=== PATIENT | male | born 1955 | race Caucasian/White ===

== ENCOUNTER 2018-03-04 09:32 | Observation (INO) | payer OTHER ==
[~2018-03-04] VITALS: Ht 172.7 cm; Wt 111.2 kg
[~2018-03-04 09:32] MED LIST: ATORVASTATIN CA40 M1 PO; DOXAZOSIN MESYLA4 M1 PO; LOSARTAN-HCTZ1 EAC2 PO; ORPHENADRINE C100 MG PO; PERCOCET 5-3251 EACH PO; TAMSULOSIN HCL0.4 M1 PO
--- NOTE | 2018-03-04 10:47 | ED GI/GU/ABDOMINAL COMPLAINT ---
History of Present Illness General Chief Complaint: Low Back Pain/Injury Stated Complaint: BACK PAIN Source: patient, family, old records Exam Limitations: no limitations Vital Signs & Intake/Output Vital Signs & Intake/Output Vital Signs Date Time Temp Pulse Resp B/P B/P Pulse O2 O2 Flow FiO2 Mean Ox Delivery Rate 03/04 1342 98.6 70 20 124/82 97 Room Air 03/04 1150 99.2 70 20 136/87 97 Room Air 03/04 0954 99.8 79 20 134/82 96 Room Air Allergies Coded Allergies: NO KNOWN ALLERGIES (06/03/17) Reconcile Medications Atorvastatin Calcium 40 MG TABLET 1 TAB PO DAILY CHOLESTEROL (Reported) Cholecalciferol (Vitamin D3) (Vitamin D) 1,000 UNIT TABLET 1 TAB PO DAILY SUPPLEMENT (Reported) Cyanocobalamin (Vitamin B-12) 1,000 MCG TABLET 1 TAB PO DAILY SUPPLEMENT ( Reported) Doxazosin Mesylate 4 MG TABLET 1 TAB PO DAILY HEART (Reported) Losartan/Hydrochlorothiazide (Losartan-Hctz 100-25 MG Tab) (Unknown Strength) TABLET (Unknown Dose) PO DAILY HEART (Reported) Orphenadrine Citrate 100 MG TABLET.ER 1 TAB PO BIDP PRN muscle tightness/pain Oxycodone HCl/Acetaminophen (Percocet 5-325 MG Tablet) 5 MG-325 MG TABLET 1 TAB PO Q6P PRN pain Tamsulosin HCl 0.4 MG CAP.ER.24H 1 CAP PO DAILY BPH (Reported) Triage Note: RIGHT UPPER QUADRANT PAIN THAT RADIATES INTO RIGHT SIDE OF BACK SINCE 0100. + N/V. PT STATES HE HAS STONES IN HIS GALLBLADDER Triage Nurses Notes Reviewed? yes Onset: 2 days Duration: day(s):, constant, continues in ED Timing: recent history Quality/Severity: fullness, severe Location: right upper quadrant Radiation: back Activities at Onset: rest Prior Abdominal Problems: similar symptoms Past Sexual History: Unobtainable at this time Modifying Factors: Worsens With: movement, palpation. Associated Symptoms: abdominal pain, loss of appetite, nausea/vomiting, nocturia HPI: 2 days prior to admission patient complains of recurrent right flank pain radiating to the right upper quadrant associate with nausea vomiting anorexia. Complains of no stools for the last 5 days. He denies fever chills chest pain cough shortness breath headache dysuria rash bleeding. Past History Travel History Traveled to [place] past 21 day No Medical History Any Pertinent Medical History? see below for history Cardiovascular: hypertension, hyperlipidemia Tetanus Vaccine: Surgical History Surgical History: non-contributory Psychosocial History Who do you live with Spouse What is your primary language Palauan Tobacco Use: Never used ETOH Use: denies use Illicit Drug Use: denies illicit drug use Family History Hx Contributory? No Review of Systems Review of Systems Constitutional: Reports: no symptoms. EENTM: Reports: no symptoms. Respiratory: Reports: no symptoms. Cardiovascular: Reports: no symptoms. GI: Reports: see HPI, abdominal pain, nausea, vomiting. Genitourinary: Reports: no symptoms. Musculoskeletal: Reports: see HPI, back pain. Skin: Reports: no symptoms. Neurological/Psychological: Reports: no symptoms. Hematologic/Endocrine: Reports: no symptoms. Immunologic/Allergic: Reports: no symptoms. All Other Systems: Reviewed and Negative Physical Exam Physical Exam General Appearance: well developed/nourished, alert, awake, anxious, moderate distress, obese Head: atraumatic, normal appearance Eyes: Bilateral: normal appearance, PERRL, EOMI, normal inspection. Ears, Nose, Throat, Mouth: hearing grossly normal, moist mucous membrane Neck: normal inspection, supple, full range of motion, normal alignment Respiratory: normal breath sounds, chest non-tender, no respiratory distress, quiet respiration, lungs clear Cardiovascular: regular rate/rhythm, normal peripheral pulses, norml femoral pulses equa Peripheral Pulses: 4+ carotid (R), 4+ carotid (L) Gastrointestinal: normal bowel sounds, soft, no organomegaly, distention, tenderness Male Genitals: normal genitalia Back: normal inspection, normal range of motion, no vertebral tenderness Extremities: normal range of motion, no ligament instability Neurologic/Psych: no motor/sensory deficits, awake, alert, oriented x 3, normal gait, normal mood/affect, stone splitter II-XII nml as tested Skin: intact, normal color, warm/dry Core Measures ACS in differential dx? No Sepsis Present: No Sepsis Focused Exam Completed? No Progress Differential Diagnosis: biliary colic, cholecystitis, gastritis Plan of Care: Orders Procedure Date/time Status BLOOD CULTURE 03/04 1241 Active URINALYSIS 03/04 1043 Complete LIPASE 03/04 1043 Complete COMPREHENSIVE METABOLIC PANEL 03/04 1043 Complete CBC WITHOUT DIFFERENTIAL 03/04 1043 Complete Laboratory Tests 03/04/18 1218: Urinalysis LIGHT H, Urine Color YEL, Urine Clarity CLEAR, Urine pH 6.0, Ur Specific [place] 1.010, Urine Protein NEG, Urine Ketones NEG, Urine Nitrite NEG, Urine Bilirubin NEG, Urine Urobilinogen 0.2, Ur Leukocyte Esterase TRACE H, Ur Microscopic SEDIMENT EXAMINED, Urine RBC RARE, Urine WBC RARE, Ur Epithelial Cells RARE, Urine Bacteria RARE H, Urine Mucus RARE, Urine Hemoglobin NEG, Urine Glucose NEG 03/04/18 1140: Anion Gap 10, Estimated GFR > 60, BUN/Creatinine Ratio 23.8, Glucose 130 H, Calcium 8.5, Total Bilirubin 1.2, AST 18, ALT 36, Alkaline Phosphatase 41, Total Protein 6.7, Albumin 3.8, Globulin 2.9, Albumin/Globulin Ratio 1.3, Lipase 15 L , CBC w Diff NO MAN DIFF REQ, RBC 4.28 L, MCV 85.9, MCH 29.4, MCHC 34.2, RDW 13.9, MPV 9.1, Gran % 87.9 H, Lymphocytes % 5.4 L, Monocytes % 6.6, Eosinophils % 0, Basophils % 0.1, Absolute Granulocytes 12.4 H, Absolute Lymphocytes 0.8 L, Absolute Monocytes 0.9 H, Absolute Eosinophils 0, Absolute Basophils 0 Microbiology 03/04 1255 BLOOD: Blood Culture - RECD 03/04 1250 BLOOD: Blood Culture - RECD Diagnostic Imaging: Viewed by Me: Ultrasound. Discussed w/RAD: Ultrasound. Radiology Impression: Distended gallbladder with cholelithiasis. Gallbladder wall is thickened with small amount of pericholecystic fluid. There is tenderness to palpation. Findings consistent with acute cholecystitis. Initial ED EKG: none Departure Departure Disposition: STILL A PATIENT Condition: Stable Clinical Impression Primary Impression: Cholecystitis with cholelithiasis Secondary Impressions: Biliary colic Referrals: Saeed BACK,Neto Holloway (PCP/Family) Departure Forms: Customer Survey General Discharge Information OR/GI Note Spoke With: Jenae Andres MD ED Treatment Decision: LOUANN CAMP requires urgent operative management or an emergent procedure that cannot be performed in the Emergency Room setting. Transport To: [facility]
[2018-03-04 11:55] LABS: ABSOLUTE BASOPHIL COUNT 0 /CUMM (0.0-0.2); ABSOLUTE EOSINOPHIL COUNT 0 /CUMM (0.0-0.7); ABSOLUTE GRANULOCYTE CT 12.4 /CUMM (1.4-6.5); ABSOLUTE LYMPH COUNT 0.8 /CUMM (1.2-3.4); ABSOLUTE MONOCYTE COUNT 0.9 /CUMM (0.10-0.60); BASOPHIL % 0.1 % (0.0-2.0); EOSINOPHIL % 0 % (0-5); HEMATOCRIT 36.7 % (42-52); MEAN CORPUSCULAR HGB 29.4 PG (27.0-31.0); MEAN CORPUSCULAR HGB CONC 34.2 G/DL (33.0-37.0); MEAN CORPUSCULAR VOLUME 85.9 FL (80.0-94.0); MEAN PLATELET VOLUME 9.1 FL (7.4-10.4); PLATELET COUNT 208 /CUMM (130-400); RBC DISTRIBUTION WIDTH 13.9 % (11.5-14.5); RED BLOOD CELL CT 4.28 /CUMM (4.70-6.10); WHITE BLOOD CELL COUNT 14.1 /CUMM (4.8-10.8)
[2018-03-04 12:13] LABS: GRANULOCYTE % 87.9 % (42.2-75.2)
[2018-03-04] MEDS ORDERED: VITAMIN D1000 UNIT PO (12:22)
[2018-03-04] MEDS ORDERED: VITAMIN B-121000 MC3 PO (12:22)
--- NOTE | 2018-03-04 12:24 | ULTRASOUND REPORT ---
EXAMINATION: US ABDOMEN LIMITED CLINICAL INFORMATION: Right upper quadrant pain and tenderness. Nausea vomiting.. COMPARISON: CT scan of March 02, 2018 TECHNIQUE: Real-time imaging of the right upper quadrant abdominal viscera. FINDINGS: PANCREAS: Obscured by overlying bowel gas. LIVER: Normal. The liver demonstrates normal size, contour and echogenicity. No focal lesion or intrahepatic biliary duct dilatation. Right lobe cyst seen on CT is not appreciated on this study. GALLBLADDER: The gallbladder is distended to approximately 10 cm in length. Cholelithiasis is present with gravel an echogenic bile. Gallbladder wall is thickened to 5 mm in diameter and there is a small amount of pericholecystic fluid present. There was tenderness to palpation overlying the gallbladder. There appears to be a few cholesterol polyps present. COMMON BILE DUCT: Normal in caliber measuring 0.4 cm in diameter. RIGHT KIDNEY: Normal. No hydronephrosis. No renal calculi or focal parenchymal lesions. The kidney measures 12.5 cm in maximum dimension. IMPRESSION: Distended gallbladder with cholelithiasis. Gallbladder wall is thickened with small amount of pericholecystic fluid. There is tenderness to palpation. Findings consistent with acute cholecystitis.
--- NOTE | 2018-03-04 13:37 | History & Physical Pre-Op ---
General Information and HPI History of Present Illness: This is a 62-year-old male who presents to emergency room for the second time in 3 days. 2 days ago he presented with bilateral back and flank pain with radiation to the abdomen. It was associated with nausea and vomiting. There were some dyspnea with his pain. Workup involved EKG, troponin and CT angiogram of the chest abdomen and pelvis. Findings were revealing only for gallstones without inflammatory changes of the gallbladder. Patient went home and since then has had persistent pain relieved by Percocet which was given to him in the ER. His nausea and vomiting. This morning he was awakened from sleep with severe pain in his right flank and abdomen. There is nausea without vomiting. No fevers but complains of chills and sweats. Allergies/Medications Allergies: Coded Allergies: NO KNOWN ALLERGIES (06/03/17) Home Med list Atorvastatin Calcium 40 MG TABLET 1 TAB PO DAILY CHOLESTEROL (Reported) Cholecalciferol (Vitamin D3) (Vitamin D) 1,000 UNIT TABLET 1 TAB PO DAILY SUPPLEMENT (Reported) Cyanocobalamin (Vitamin B-12) 1,000 MCG TABLET 1 TAB PO DAILY SUPPLEMENT ( Reported) Doxazosin Mesylate 4 MG TABLET 1 TAB PO DAILY HEART (Reported) Losartan/Hydrochlorothiazide (Losartan-Hctz 100-25 MG Tab) (Unknown Strength) TABLET (Unknown Dose) PO DAILY HEART (Reported) Orphenadrine Citrate 100 MG TABLET.ER 1 TAB PO BIDP PRN muscle tightness/pain Oxycodone HCl/Acetaminophen (Percocet 5-325 MG Tablet) 5 MG-325 MG TABLET 1 TAB PO Q6P PRN pain Tamsulosin HCl 0.4 MG CAP.ER.24H 1 CAP PO DAILY BPH (Reported) Past History Medical History Cardiovascular: hypertension, hyperlipidemia Renal: benign prost hyperplasia Musculoskeletal: 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 There is abdominal pain per HPI. No neurologic symptoms. Complete bladder emptying relieved by medications. Chronic arthritic symptoms multiple joints, none are lifestyle limiting. Remainder 12 points negative Exam & Diagnostic Data Last 24 Hrs of Vital Signs/I&O Vital Signs Date Time Temp Pulse Resp B/P B/P Pulse O2 O2 Flow FiO2 Mean Ox Delivery Rate 03/04 1150 99.2 70 20 136/87 97 Room Air 03/04 0954 99.8 79 20 134/82 96 Room Air Intake & Output 03/04 1600 03/04 0800 03/04 0000 Intake Total 1000 Output Total Balance 1000 Intake, IV 1000 Patient 233 lb Weight Weight Reported by Patient Measurement Method Physical Exam: Gen.: He is obese looks his stated age and is in no distress. HEENT: Anicteric PERRL EOMI Chest: Lungs clear bilaterally, heart regular without murmurs Abdomen soft tender right upper quadrant. Negative Castellanos sign no masses no hernias Extremities: No cyanosis clubbing or edema Last 24 Hrs of Labs/Jan: Laboratory Tests 03/04/18 1218: Urinalysis LIGHT H, Urine Color YEL, Urine Clarity CLEAR, Urine pH 6.0, Ur Specific [place] 1.010, Urine Protein NEG, Urine Ketones NEG, Urine Nitrite NEG, Urine Bilirubin NEG, Urine Urobilinogen 0.2, Ur Leukocyte Esterase TRACE H, Ur Microscopic SEDIMENT EXAMINED, Urine RBC RARE, Urine WBC RARE, Ur Epithelial Cells RARE, Urine Bacteria RARE H, Urine Mucus RARE, Urine Hemoglobin NEG, Urine Glucose NEG 03/04/18 1140: Anion Gap 10, Estimated GFR > 60, BUN/Creatinine Ratio 23.8, Glucose 130 H, Calcium 8.5, Total Bilirubin 1.2, AST 18, ALT 36, Alkaline Phosphatase 41, Total Protein 6.7, Albumin 3.8, Globulin 2.9, Albumin/Globulin Ratio 1.3, Lipase 15 L , CBC w Diff NO MAN DIFF REQ, RBC 4.28 L, MCV 85.9, MCH 29.4, MCHC 34.2, RDW 13.9, MPV 9.1, Gran % 87.9 H, Lymphocytes % 5.4 L, Monocytes % 6.6, Eosinophils % 0, Basophils % 0.1, Absolute Granulocytes 12.4 H, Absolute Lymphocytes 0.8 L, Absolute Monocytes 0.9 H, Absolute Eosinophils 0, Absolute Basophils 0 Microbiology 03/04 1255 BLOOD: Blood Culture - RECD 03/04 1250 BLOOD: Blood Culture - RECD Diagnostic Data Other Results CT scan of the chest abdomen and pelvis from 03/02/2018 was personally reviewed. Findings show a distended gallbladder with gallstones without inflammatory changes. Ultrasound dated 03/04/2018 shows gallstones with gallbladder wall thickening and pericholecystic fluid. Assessment/Plan Assessment/Plan: 62-year-old male with persistent flank and abdominal pain. By serial imaging, there has been progression inflammatory changes of his gallbladder. Furthermore his pain really has never resolved since it began 2 days ago. He is now developed a leukocytosis and concerns clinically and radiographically that of acute cholecystitis. Recommendations are that of prompt laparoscopic cystectomy. He has not eaten anything today, therefore surgery would be planned today. Patient's informed the risk of the operation including bleeding, infection, conversion to open, postcholecystectomy diarrhea and he agrees to proceed. As Ranked By This Provider Problem List: 1. Acute cholecystitis
--- NOTE | 2018-03-04 16:39 | Operative Report ---
Operative/Inv Procedure Report Surgery Date: 03/04/18 Name of Procedure: Laparoscopic cholecystectomy Pre-Operative Diagnosis: Acute cholecystitis Post-Operative Diagnosis: Same Estimated Blood Loss: less than 50ml Surgeon/Structural Design Engineer: Shaihd Andres M.D./Kayla SINGH Anesthesia: general endotracheal tube Drains: None Specimens: Gallbladder Operative Indication: 62-year-old male with persistent and worsening right upper quadrant abdominal and flank pain over the past 3 days. Recent imaging shows findings consistent with acute cholecystitis. Operative/Procedure Note Note: After informed consent patient is brought to the operating room and laid supine. General anesthesia was obtained and his abdomen was prepped and draped. The skin above the umbilicus infiltrated with local anesthesia and a curvilinear incision made sharply. We came down through the subcutaneous tissues bluntly and grasped the fascia with Wheatland's. A fasciotomy was created sharply and stay sutures placed. The peritoneum was entered sharply and a blunt Matthews port was placed. Pneumoperitoneum was achieved. 3, 5 mm ports were placed in the epigastrium and right upper quadrant after local anesthesia was instilled and under direct vision the camera. he's placed in reverse Trendelenburg and rotated towards the left. The gallbladder was difficult to identify. There was omentum adherent to it which is obscuring its few. omentum was taken down bluntly. It was grasped at the dome and retracted towards the head. There is severe inflammatory changes to the entire gallbladder. Dissection was quite difficult due to significant amount of intraperitoneal fat. We painstakingly tease doubt the fat off of the gallbladder wall. Eventually were able to get down to Meraz's pouch. Infundibulum was then grasped. Adhesions to the undersurface were taken down with blunt and cautery dissection. We dissected both sides the triangle Calot peritoneal tissue with cautery and blunt dissection.. The artery was medial and its normal anatomic position. It was cauterized medially to allow it to be mobilized away from the duct. Berino was cleared of areolar tissue with cautery. The arteries and duct were doubly ligated with clips. Gallbladder is removed from the fossa electrocautery. There was copious purulent drainage from the gallbladder. Once it was amputated from the liver bed, It was placed in Endo Catch bag and cinched up. Right upper quadrant was and suction irrigated normal saline. Hemostasis achieved with cautery. The ports were then removed and the gallbladder delivered and passed off the field. The fascia was closed with 0 Vicryl suture. Skin incisions closed with 4-0 Vicryl. Steri-Strips and sterile dressing applied. Sponge and needle counts are correct. CC: Saeed BACK,Neto Holloway
--- NOTE | 2018-03-04 17:34 | Patient Discharge Instructions ---
Discharge Instructions General Discharge Information You were seen/treated for: ACUTE CHOLECYSTITIS You had these procedures: LAPARSCOPIC CHOLECYSTECTOMY Watch for these problems: WOUND DRAINAGE, REDNESS, FEVERS OR CHILLS, INCREASING ABDOMINAL PAIN Call Surgeon to remove: WOUND CHECK Do not soak the wound: No Daily wet to dry dressings: No No bath, but you may shower: Yes Other wound care: KEEP INCISIONS CLEAN AND DRY, COVER WITH OCCLUSIVE BANDAIDS FOR SHOWERS Special Instructions: NO STRENUOUS ACTIVITIES UNTIL CLEARED BY YOUR SURGEON Diet Continue normal diet: Yes Recommended Diet: Heart Healthy Activity Full Activity/No Limits: No Activity Self Limited: Yes Acute Coronary Syndrome Inclusion Criteria At DC or during hospital stay patient has or had the following: ACS DIAGNOSIS No Discharge Core Measures Meds if any: Prescribed or Continued at Discharge Meds if any: NOT Prescribed or Continued at Discharge Congestive Heart Failure Inclusion Criteria At DC or during hospital stay patient has or had the following: CHF DIAGNOSIS No Discharge Core Measures Meds if any: Prescribed or Continued at Discharge Meds if any: NOT Prescribed or Continued at Discharge Cerebrovascular accident Inclusion Criteria At DC or during hospital stay patient has or had the following: CVA/TIA Diagnosis No Discharge Core Measures Meds if any: Prescribed or Continued at Discharge Meds if any: NOT Prescribed or Continued at Discharge Venous thromboembolism Inclusion Criteria VTE Diagnosis No VTE Type NONE VTE Confirmed by (Test) NONE Discharge Core Measures - Per Current guidelines, there needs to be overlap - treatment for the first 5 days of Warfarin therapy. - If discharged on Warfarin prior to 5 days of - overlap therapy, the patient will need to be - assessed for post discharge needs including - *Post discharge parental anticoagulation - *Warfarin and/or parental anticoagulation education - *Follow up date to check INR post discharge At least 5 days overlap therapy as Inpatient No Meds if any: Prescribed or Continued at Discharge Note: Overlap Therapy is Warfarin and Anticoagulant Meds if any: NOT Prescribed or Continued at Discharge
--- NOTE | 2018-03-04 17:36 | Admission Core Measures ---
Acute Coronary Syndrome (CM) ACS Core Measures Acute Coronary Syndrome Diagnosis No Congestive Heart Failure (NEW) CHF Core Measures Congestive Heart Failure Diagnosis No Cerebrovascular Accident CVA Core Measures CVA/TIA Diagnosis No Venous Thromboembolism VTE Core Gurvinder (View Protocol) VTE Risk Factors Surgery No Mechanical VTE Prophylaxis d/t N/A MechProphylax Ordered No VTE Pharm Prophylaxis d/t NA PharmProphylax ordered Problem List As ranked by this Provider includes Assessment & Plan 1. Acute cholecystitis HOME MEDS Home Med List Atorvastatin Calcium 40 MG TABLET 1 TAB PO DAILY CHOLESTEROL (Reported) Cholecalciferol (Vitamin D3) (Vitamin D) 1,000 UNIT TABLET 1 TAB PO DAILY SUPPLEMENT (Reported) Cyanocobalamin (Vitamin B-12) 1,000 MCG TABLET 1 TAB PO DAILY SUPPLEMENT ( Reported) Doxazosin Mesylate 4 MG TABLET 1 TAB PO DAILY HEART (Reported) Losartan/Hydrochlorothiazide (Losartan-Hctz 100-25 MG Tab) (Unknown Strength) TABLET (Unknown Dose) PO DAILY HEART (Reported) Orphenadrine Citrate 100 MG TABLET.ER 1 TAB PO BIDP PRN muscle tightness/pain Oxycodone HCl/Acetaminophen (Percocet 5-325 MG Tablet) 5 MG-325 MG TABLET 1 TAB PO Q6P PRN pain Tamsulosin HCl 0.4 MG CAP.ER.24H 1 CAP PO DAILY BPH (Reported)
--- NOTE | 2018-03-04 17:40 | Surg Short-stay <48hrs Dis Sum ---
Visit Information Visit Dates Admission Date: 03/04/18 Discharge Date: 03/05/2018 Surgical Short Stay DC Summary Admission Diagnosis: ACUTE CHOLECYSTITIS Final Diagnosis: ACUTE CHOLECYSTITIS Procedure(s): LAPRASCOPIC CHOLECYSTECTOMY Summary/Significant Findings: 62 Y/O MALE PRESENTED TO THE ER WITH RUQ PAIN. US AND LABS CONSISTENT WITH ACUTE CHOLECYSTITIS. HE WAS TAKEN TO THE OR AND UNDERWENT LAPRASCOPIC CHOLECYSTECTOMY WITHOUT INCIDENT. HE WAS TRANFERRED TO THE FLOOR AND TOLARATED POS AND VOIDED. HIS HOSPITAL COURSE WAS UNEVENTFUL AND HE WAS DISCHARGED IN STABLE CONDITION Condition at Discharge: STABLE Discharge Disposition: hospice - home Discharge instructions provided to patient/family: Yes Post discharge follow-up plan: FOLLOW-UP IN 1 WEEK Copies to: Dmitry BACK,Shahid Novoa
[2018-03-04 17:55] VITALS: BP 130/80
--- NOTE | 2018-03-04 18:43 | PN- General Surgery ---
Subjective Subjective: POST-OP NOTE No complaints. Some "soreness". Tolerating sips of clears. No nausea. Voiding without difficulty pre-operatively, but still due to void post-op later tonight. Reports constipated since tuesday. He believes this might be secondary to percocet-induced constipation, as he was taking this for pain prior to coming to the ED. He was given only #10 tablets of percocet, so he will likely need another prescription at the time of discharge, although he would prefer to avoid narcotics if possible. Objective Vital Signs and I&Os Vital Signs Date Time Temp Pulse Resp B/P B/P Pulse O2 O2 Flow FiO2 Mean Ox Delivery Rate 03/04 175 98 Nasal 2.0L Cannula 03/04 175 98.2 73 18 130/80 94 Nasal 2.0L Cannula 03/04 1342 98.6 70 20 124/82 97 Room Air 03/04 1150 99.2 70 20 136/87 97 Room Air 03/04 0954 99.8 79 20 134/82 96 Room Air Intake & Output 03/04 1600 03/04 0800 03/04 0000 03/03 1600 03/03 0800 03/03 0000 Intake Total 1000 Output Total Balance 1000 Intake, IV 1000 Patient 233 lb Weight Weight Reported by Patient Measurement Method Physical Exam: General - alert & oriented x 3. comfortable. no acute distress. Lungs - clear bilaterally. no w/r/r. Cardiac - s1s2. reg. Abdomen - round. soft. dressings c/d/i. oswald-incisional tenderness. no drains. Extremities - warm bilaterally. no c/c/e. calves soft and nontender b/l. Current Medications: Current Medications Sig/Marissa Start time Last Medication Dose Route Stop Time Status Admin Acetaminophen 1,000 MG Q6P PRN 03/04 1730 AC N/A 1 UNIT IV Ampicillin Sodium/ 3,000 MG Q6 03/04 1800 AC Sulbactam Sodium IV 03/05 1759 Sodium Chloride 100 ML Ampicillin Sodium/ 0 .STK-MED ONE 03/04 1258 DC Sulbactam Sodium .ROUTE Ampicillin Sodium/ 3,000 MG ONCE ONE 03/04 1245 DC 03/04 Sulbactam Sodium IV 03/04 1314 1303 Sodium Chloride 100 ML Atorvastatin Calcium 40 MG DAILY 03/05 09 AC PO Bisacodyl 5 MG DAILY PRN 03/04 1845 UNVr PO Dextrose/Sodium 1,000 ML Q10H 03/04 1715 AC 03/04 Chloride IV 1824 Docusate Sodium 100 MG TID 03/04 2100 UNVr PO Doxazosin Mesylate 4 MG DAILY 03/05 900 UNVr PO Heparin Sodium 5,000 UNIT Q8 03/04 2200 AC (Porcine) SC Hydrochlorothiazide 25 MG DAILY 03/05 900 AC PO Ketorolac 0 .STK-MED ONE 03/04 1141 DC Tromethamine .ROUTE Ketorolac 30 MG ONCE ONE 03/04 1045 DC 03/04 Tromethamine IV 03/04 1046 1140 Losartan Potassium 100 MG DAILY 03/05 900 AC PO Methylnaltrexone 12 MG ONCE ONE 03/04 1100 DC 03/04 [place] SC 03/04 1101 1140 Morphine Sulfate 2 MG Q4P PRN 03/04 1730 AC IV Morphine Sulfate 4 MG Q4P PRN 03/04 1730 AC IV Morphine Sulfate See Dose Q4P PRN 03/04 1715 DC Insts (1) IV Ondansetron HCl 4 MG Q6P PRN 03/04 1715 AC IV Ondansetron HCl 0 .STK-MED ONE 03/04 1141 DC .ROUTE Ondansetron HCl 4 MG ONCE ONE 03/04 1045 DC 03/04 IV 03/04 1046 1140 Oxycodone HCl 5 MG Q6 PRN 03/04 1730 AC PO Oxycodone HCl 10 MG Q6 PRN 03/04 1730 AC PO Polyethylene Glycol 17 GM DAILY 03/05 900 UNVr PO Sodium Chloride 1,000 ML BOLUS ONE 03/04 1045 DC 03/04 IV 03/04 1144 1140 Tamsulosin HCl 0.4 MG DAILY 03/05 900 AC PO Dose Instructions: (1)Morphine Sulfate: 1-4MG Results Last 48 Hours of Labs: Laboratory Tests 03/04 03/04 1218 1140 Chemistry Sodium (137 - 145 mmol/L) 136 L Potassium (3.5 - 5.1 mmol/L) 3.6 Chloride (98 - 107 mmol/L) 100 Carbon Dioxide (22 - 30 mmol/L) 26 Anion Gap (5 - 16) 10 BUN (9 - 20 mg/dL) 19 Creatinine (0.7 - 1.2 mg/dL) 0.8 Estimated GFR (>60 ml/min) > 60 BUN/Creatinine Ratio (7 - 25 %) 23.8 Glucose (65 - 99 mg/dL) 130 H Calcium (8.4 - 10.2 mg/dL) 8.5 Total Bilirubin (0.2 - 1.3 mg/dL) 1.2 AST (17 - 59 U/L) 18 ALT (21 - 72 U/L) 36 Alkaline Phosphatase (< 127 U/L) 41 Total Protein (6.3 - 8.2 g/dL) 6.7 Albumin (3.5 - 5.0 g/dL) 3.8 Globulin (1.9 - 4.2 gm/dL) 2.9 Albumin/Globulin Ratio (1.1 - 2.2 %) 1.3 Lipase (23 - 300 U/L) 15 L Hematology CBC w Diff NO MAN DIFF REQ WBC (4.8 - 10.8 /CUMM) 14.1 H RBC (4.70 - 6.10 /CUMM) 4.28 L Hgb (14.0 - 18.0 G/DL) 12.6 L Hct (42 - 52 %) 36.7 L MCV (80.0 - 94.0 FL) 85.9 MCH (27.0 - 31.0 PG) 29.4 MCHC (33.0 - 37.0 G/DL) 34.2 RDW (11.5 - 14.5 %) 13.9 Plt Count (130 - 400 /CUMM) 208 MPV (7.4 - 10.4 FL) 9.1 Gran % (42.2 - 75.2 %) 87.9 H Lymphocytes % (20.5 - 51.1 %) 5.4 L Monocytes % (1.7 - 9.3 %) 6.6 Eosinophils % (0 - 5 %) 0 Basophils % (0.0 - 2.0 %) 0.1 Absolute Granulocytes (1.4 - 6.5 /CUMM) 12.4 H Absolute Lymphocytes (1.2 - 3.4 /CUMM) 0.8 L Absolute Monocytes (0.10 - 0.60 /CUMM) 0.9 H Absolute Eosinophils (0.0 - 0.7 /CUMM) 0 Absolute Basophils (0.0 - 0.2 /CUMM) 0 Urines Urinalysis LIGHT H Urine Color (YEL,AMB,STR) YEL Urine Clarity (CLEAR) CLEAR Urine pH (5.0 - 8.0) 6.0 Ur Specific [place] (1.001 - 1.035) 1.010 Urine Protein (NEG,<30 MG/DL) NEG Urine Ketones (NEG) NEG Urine Nitrite (NEG) NEG Urine Bilirubin (NEG) NEG Urine Urobilinogen (0.1 - 1.0 EU/dl) 0.2 Ur Leukocyte Esterase (NEG) TRACE H Ur Microscopic SEDIMENT EXAMINED Urine RBC (0 - 5 /HPF) RARE Urine WBC (0 - 2 /HPF) RARE Ur Epithelial Cells (NONE,FEW) RARE Urine Bacteria (NEG/NONE) RARE H Urine Mucus (FEW,NONE) RARE Urine Hemoglobin (NEG) NEG Urine Glucose (N MG/DL) NEG Assessment/Plan Assessment/Plan This 62 year old male with hx htn, hld, bph, is POD#0 s/p laparoscopic cholecystectomy for acute cholecystitis advance diet as tolerated pain control as ordered continue iv unasyn post-op due to acute cholecystitis / perforated gallbladder with stones colace / miralax / dulcolax ordered oob/ambulation hep sc - dvt ppx due to void later tonight home meds ordered d/c planning, possibly tomorrow if tolerating diet advancement will d/w Core Measures Venous Thromboembolism VTE Risk Factors Surgery No Mechanical VTE Prophylaxis d/t N/A MechProphylax Ordered No VTE Pharm Prophylaxis d/t NA PharmProphylax ordered
[2018-03-04 21:28] VITALS: BP 133/78
[2018-03-05 06:19] VITALS: BP 124/76
--- NOTE | 2018-03-05 07:22 | PN- Student ---
Myron Sutton 03/05/18 0708: Subjective Subjective: 4/10 pain located on the lower half of the abdomen. no nausea, no vomiting. Had small, hard bowel movement this am after suppository. Passing flatus and making urine. OOB around the unit and to the bathroom. Has only had water PO. No calf pain, no chest pain, no shortness of breath Objective Objective: Vitals: Temp: 98.2 Pulse: 72 Respiratory: 18 BP: 124/74 O2 sat: 95 room air I/O's I: 800 IV O: not recorded Imaging: None Physical Exam: General: no acute distress. Alert and oriented. uncomfortable Pulm: clear to auscultation cardio: s1,s2,RRR Abdomen: softly distended, + bowel sounds, tender in RUQ, LLQ and around incisions. Dressings/steri's are intact with minimal serosanguinous discharge. Extremities: calves soft and non tender bilaterally Results Results: Laboratory Tests 03/04/18 1218: Urinalysis LIGHT H, Urine Color YEL, Urine Clarity CLEAR, Urine pH 6.0, Ur Specific [place] 1.010, Urine Protein NEG, Urine Ketones NEG, Urine Nitrite NEG, Urine Bilirubin NEG, Urine Urobilinogen 0.2, Ur Leukocyte Esterase TRACE H, Ur Microscopic SEDIMENT EXAMINED, Urine RBC RARE, Urine WBC RARE, Ur Epithelial Cells RARE, Urine Bacteria RARE H, Urine Mucus RARE, Urine Hemoglobin NEG, Urine Glucose NEG 03/04/18 1140: Anion Gap 10, Estimated GFR > 60, BUN/Creatinine Ratio 23.8, Glucose 130 H, Calcium 8.5, Total Bilirubin 1.2, AST 18, ALT 36, Alkaline Phosphatase 41, Total Protein 6.7, Albumin 3.8, Globulin 2.9, Albumin/Globulin Ratio 1.3, Lipase 15 L , CBC w Diff NO MAN DIFF REQ, RBC 4.28 L, MCV 85.9, MCH 29.4, MCHC 34.2, RDW 13.9, MPV 9.1, Gran % 87.9 H, Lymphocytes % 5.4 L, Monocytes % 6.6, Eosinophils % 0, Basophils % 0.1, Absolute Granulocytes 12.4 H, Absolute Lymphocytes 0.8 L, Absolute Monocytes 0.9 H, Absolute Eosinophils 0, Absolute Basophils 0 Microbiology 03/04 1255 BLOOD: Blood Culture - RECD 03/04 1250 BLOOD: Blood Culture - RECD Assessment/Plan Assessment: 62 year old male POD1 s/p cholecystectomy doing well with appropriate post op pain awaiting full return of bowel function. Plan: Start clear liquid diet check pending labs ALPS/Heparin subQ for DVT prophylaxis Encourage OOB Morphine, oxycodone, acetaminophen prn pain zofran prn nausea Unasyn IV while admitted miralx, colace, dulcolax for bowel function continue home meds Plan for D/C Dmitry BACK,Shahid Novoa 03/05/18 0838: Attending MD Review Statement Attending Sign Off Other Findings: ABOVE. ADVANCE DIET. F/U LABS. D/C HOME TODAY PENDING ABOVE.
[2018-03-05 09:19] LABS: ABSOLUTE BASOPHIL COUNT 0 /CUMM (0.0-0.2); ABSOLUTE EOSINOPHIL COUNT 0 /CUMM (0.0-0.7); ABSOLUTE GRANULOCYTE CT 14.9 /CUMM (1.4-6.5); ABSOLUTE LYMPH COUNT 0.6 /CUMM (1.2-3.4); ABSOLUTE MONOCYTE COUNT 0.9 /CUMM (0.10-0.60); BASOPHIL % 0 % (0.0-2.0); EOSINOPHIL % 0.1 % (0-5); HEMATOCRIT 33.7 % (42-52); MEAN CORPUSCULAR HGB 29.7 PG (27.0-31.0); MEAN CORPUSCULAR HGB CONC 33.8 G/DL (33.0-37.0); MEAN CORPUSCULAR VOLUME 87.8 FL (80.0-94.0); MEAN PLATELET VOLUME 10.4 FL (7.4-10.4); PLATELET COUNT 193 /CUMM (130-400); RBC DISTRIBUTION WIDTH 13.9 % (11.5-14.5); RED BLOOD CELL CT 3.83 /CUMM (4.70-6.10); WHITE BLOOD CELL COUNT 16.4 /CUMM (4.8-10.8)
[2018-03-05 09:51] LABS: GRANULOCYTE % 90.9 % (42.2-75.2)
[2018-03-05] MEDS ORDERED: PERCOCET 5-3251 EACH PO (12:10)
[2018-03-05 14:19] VITALS: BP 116/64
== END 2018-03-05 15:25 ==
LOC: ERH 09:32 → ER-OR 10:01 → PACUH 16:52 → ENRESERV 17:36 → ENTRNSPT 17:44 → EDTRNSPTSTS 17:48 → EDTRNSPT 17:48 → 2NB 17:55 → CMPTRNSPT 18:17 → 2NB 19:05 → ENTRNSPT 03-05 14:58 → EDTRNSPTSTS 03-05 15:16 → 2NB 03-05 15:25 → CMPTRNSPT 03-05 15:39
PROVIDERS: Emergency Medicine; Physician Assistant
DX: K80.12 Calculus of gallbladder with acute and chronic cholecystitis without obstruction (principal); G47.33 Obstructive sleep apnea (adult) (pediatric); I10 Essential (primary) hypertension; E78.5 Hyperlipidemia, unspecified; N40.0 Benign prostatic hyperplasia without lower urinary tract symptoms; M19.90 Unspecified osteoarthritis, unspecified site; Z85.21 Personal history of malignant neoplasm of larynx; K21.9 Gastro-esophageal reflux disease without esophagitis
CPT/HCPCS: 1255; 1328; 1530; 1748; 6040; 36592; 81001; 82436; 87040; 88304; 96361; 96365; 96372; 96375; 96376; G0378; J0131; J0690; J1644; J1885; J2405; J3490; J7042